=== PATIENT | male | born 1965 | race Caucasian/White ===

== ENCOUNTER 2017-03-10 18:32 | Emergency (ER) | payer BC ==
[2017-03-10 18:52] VITALS: BP 125/87
--- NOTE | 2017-03-10 19:10 | EDM.PDOC ---
ED HPI GENERAL MEDICAL PROBLEM - General Chief Complaint: Respiratory Problem Stated Complaint: HARD TIME BREATHING Time Seen by Provider: 03/10/17 18:55 Source of Information: Reports: Patient History Limitations: Reports: No Limitations - History of Present Illness INITIAL COMMENTS - FREE TEXT/NARRATIVE: HISTORY AND PHYSICAL: History of present illness: [Patient comes to the emergency room complaining of cough for the past several months. In the past couple of weeks he started coughing up green, yellow and brown-colored sputum. His cough has become more troublesome. He has occasional wheezing. No fever or chills. He has some throat irritation which he attributes to coughing. Denies chest pain, shortness of breath, and difficulty breathing. Does not have any abdominal pain, nausea or vomiting. No change in bowel or bladder. He hasn't tried any medications for his symptoms. Does not use home oxygen. 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 Has not seen PCP in 7+ years. He continues to smoke 2 packs a day for approximately 35-40 years. ] Review of systems: As per history of present illness and below otherwise all systems reviewed and negative. Past medical history: As per history of present illness and as reviewed below otherwise noncontributory. Surgical history: As per history of present illness and as reviewed below otherwise noncontributory. Social history: No reported history of drug or alcohol abuse. Family history: As per history of present illness and as reviewed below otherwise noncontributory. Physical exam: HEENT: Atraumatic, normocephalic. Cerumen present in ear canals bilaterally. Oral mucous membranes are pink and moist. Throat is mildly erythematous. neck supple, no lymphadenopathy. Lungs: Mild wheezing heard bilaterally. Lungs are otherwise Clear to auscultation. Heart: S1S2, regular rate and rhythm. Abdomen: Soft, nondistended, nontender. Obese. Pelvis: Stable nontender. Genitourinary: Deferred. Rectal: Deferred. Extremities: Atraumatic. Neurovascular unremarkable. Neuro: Awake, alert, oriented. Motor and sensory unremarkable throughout. Exam nonfocal. Diagnostics: [Chest x-ray] Therapeutics: [DuoNeb treatment] Impression: [COPD exacerbation] Plan: [Pt is able to breathe more deeply following DuoNeb treatment. Rx given for Azithromycin 250mg (#6) si po today then one daily total taken zero refills. Quit smoking. Followup with PCP to recheck and discuss the need for regular neb tx. Anticipate that patient's symptoms will improve w/ antibiotic. ] Definitive disposition and diagnosis as appropriate pending reevaluation and review of above. Throat, esophagus and lungs Pain Score (Numeric/FACES): 4 - Related Data Allergies Allergy/AdvReac Type Severity Reaction Status Date / Time hydrocodone [From [place]] Allergy "no Verified 03/10/17 18:43 functional" Home Meds: Home Meds . [No Known Home Meds] 07/11/16 [History] Past Medical History HEENT History: Reports: None Cardiovascular History: Reports: None Respiratory History: Reports: None Gastrointestinal History: Reports: Jaundice Genitourinary History: Reports: None Neurological History: Reports: None Psychiatric History: Reports: None Endocrine/Metabolic History: Reports: None - Infectious Disease History Infectious Disease History: Reports: Chicken Pox, Hepatitis A, Hepatitis B - Past Surgical History HEENT Surgical History: Reports: None Cardiovascular Surgical History: Reports: None GI Surgical History: Reports: None Social & Family History - Family History Family Medical History: Noncontributory HEENT: Reports: None Cardiac: Reports: None - Tobacco Use Smoking Status *Q: Current Every Day Smoker Years of Tobacco use: 40 Packs/Tins Daily: 2 - Caffeine Use Caffeine Use: Reports: Coffee Caffeine Use Comment: all day - Recreational Drug Use Recreational Drug Use: No ED ROS GENERAL - Review of Systems Review Of Systems: ROS reveals no pertinent complaints other than HPI. ED EXAM, GENERAL - Physical Exam Exam: See Below Course - Vital Signs Last Recorded V/S: Last Vital Signs Temp 97.7 F 03/10/17 18:45 Pulse 73 03/10/17 18:45 Resp 16 03/10/17 18:45 BP 125/87 03/10/17 18:45 Pulse Ox 94 L 03/10/17 18:45 - Orders/Labs/Meds Orders: Active Orders 24 hr Category Date Time Status RT Aerosol Therapy [RC] ASDIRECTED Care 03/10/17 20:52 Active Meds: Medications Discontinued Medications Generic Name Dose Route Start Last Admin Trade Name Freq PRN Reason Stop Dose Admin Albuterol/Ipratropium 3 ml 03/10/17 20:52 03/10/17 21:07 Duoneb 3.0-0.5 Mg/3 Ml NEB 03/10/17 20:53 3 ml ONETIME ONE Administration Departure - Departure Time of Disposition: 21:45 Disposition: Home, Self-Care 01 Condition: good Clinical Impression: COPD exacerbation - Discharge Information Instructions: Chronic Obstructive Pulmonary Disease Exacerbation, [id number] Referrals: PCP,None [Primary Care Provider] - Forms: ED Department Discharge Additional Instructions: The following information is given to patients seen in the emergency department who are being discharged to home. This information is to outline your options for follow-up care. We provide all patients seen in our emergency department with a follow-up referral. The need for follow-up, as well as the timing and circumstances, are variable depending upon the specifics of your emergency department visit. If you don't have a primary care physician on staff, we will provide you with a referral. We always advise you to contact your personal physician following an emergency department visit to inform them of the circumstance of the visit and for follow-up with them and/or the need for any referrals to a consulting specialist. The emergency department will also refer you to a specialist when appropriate. This referral assures that you have the opportunity for follow-up care with a specialist. All of these measure are taken in an effort to provide you with optimal care, which includes your follow-up. Under all circumstances we always encourage you to contact your private physician who remains a resource for coordinating your care. When calling for follow-up care, please make the office aware that this follow-up is from your recent emergency room visit. If for any reason you are refused follow-up, please contact the [facility] emergency department at and asked to speak to the emergency department charge nurse. [facility] [address] [place] [id number] Establish care at the clinic listed above and followup there in 48-72 hours. Take antibiotic as prescribed. Return to ER as needed as discussed - My Orders Last 24 Hours: My Active Orders 03/10/17 20:52 RT Aerosol Therapy [RC] ASDIRECTED - Assessment/Plan Last 24 Hours: My Active Orders 03/10/17 20:52 RT Aerosol Therapy [RC] ASDIRECTED
[2017-03-10] MEDS ORDERED: Albuterol/Ipratropium 3.0-0.5 MG/3 ML Neb Soln NEB ONE (20:52)
--- NOTE | 2017-03-11 10:27 | CR ---
EXAM DATE: 03/10/17 PATIENT'S AGE: 51 Patient: BIANCA IRELAND Facility: [place], [place] Site . Site : 1965 Study: XRay Chest [id number]/17/2017 8:27:28 PM Ordering Physician: Doctor Mendoza Final Report: INDICATION: cough, dyspnea COMPARISON: Chest x-ray dated 11 July 2016. FINDINGS: PA and lateral chest x-rays show a normal cardiac silhouette. The lungs show no focal pulmonary opacities. Sharp pleural margins. No pneumothorax. IMPRESSION: No evidence of acute pulmonary abnormalities. Dictated by Mo Christine MD @ 03/10/2017 8:50:48 PM Dictated by: Mo Christine MD @ 03/10/2017 20:50:54 (Electronic Signature) Report Signed by Proxy. [facility]
== END 2017-03-10 21:43 | disposition home or self-care (01) ==
LOC: MW.ED 18:32
DX: J44.1 Chronic obstructive pulmonary disease with (acute) exacerbation (principal); F17.210 Nicotine dependence, cigarettes, uncomplicated; Z88.5 Allergy status to narcotic agent
CPT/HCPCS: 71020; 71020-26; 94640; 99283-25; 99284

== ENCOUNTER 2017-12-03 05:10 | Emergency (ER) | payer BC ==
[2017-12-03] MEDS ORDERED: Sodium Chloride 0.9% 10 ML Syringe FLUSH PRN (05:14)
[2017-12-03] MEDS ORDERED: Sodium Chloride 0.9% 2.5 ML Syringe FLUSH PRN (05:14)
--- NOTE | 2017-12-03 05:23 | EDM.PDOC ---
ED HPI GENERAL MEDICAL PROBLEM - General Stated Complaint: STROKE Time Seen by Provider: 12/03/17 05:14 - History of Present Illness INITIAL COMMENTS - FREE TEXT/NARRATIVE: HISTORY AND PHYSICAL: History of present illness: The patient is a 51-year-old male who presents via EMS after he was at work and was noted to be normal 30-40 minutes before he was noted to have difficulty talking and then slumped to the ground due to weakness on his right side. EMS took about 15 minutes to get here and the time of onset of these symptoms is approximately 4:20 AM or 1 hour prior to this dictation. Patient was transported here quickly and on arrival patient is able to answer simple questions with yes and no but has garbled speech and cannot enunciate. He says he has has a headache on the top of his head but no neck pain no back pain no chest pain or shortness of breath no nausea or abdominal pain. He doesn't smoke or do drugs or drink. He denies any pre-existing medical problems but is difficult to get history due to his expressive aphasia and is in route. Patient is able to move the left upper and left lower extremity spontaneously and he has slight movement of his right foot and with assistance he can hold up his right arm but if left to the ground. He seems frustrated by my questions. Further history I will obtain from the when she arrives. He tells me he doesn't have a history of high blood pressure diabetes or heart problems and is not on blood thinners. Paramedics tell me that bystanders at the scene said that he did not have any trauma but slumped to the floor did not fall. According to the who is now here at O525 AM he has no pre-existing medical problems and he is a heavy smoker and always has a dry cough but he has issues with breathing when he is laying on his back which is what he has been doing well in the ER. She says that she got a text from him just before 4 AM which was coherent . She says that he does not take any medications except an occasional ibuprofen. Review of systems: As per history of present illness and below otherwise all systems reviewed and negative. Past medical history: As per history of present illness and as reviewed below otherwise noncontributory. Surgical history: As per history of present illness and as reviewed below otherwise noncontributory. Social history: No reported history of drug or alcohol abuse. Family history: As per history of present illness and as reviewed below otherwise noncontributory. Physical exam: General: Well-developed overweight male who is nontoxic and has garbling to his speech but can answer yes or no. He seems to understand my questions and is somewhat frustrated with his answers. He has had dry coughing in the ED but he is maintaining his airway and vital signs of the note by me HEENT: Atraumatic, normocephalic, pupils reactive, negative for conjunctival pallor or scleral icterus, mucous membranes moist, throat clear, neck supple, nontender, trachea midline. Lungs: Clear to auscultation, breath sounds equal bilaterally, chest nontender. Heart: S1S2, regular, negative for clicks, rubs, or JVD. Abdomen: Soft, nondistended, nontender. Negative for masses or hepatosplenomegaly. NABS. Pelvis: Stable nontender. Genitourinary: Deferred. Rectal: Deferred. Extremities: Atraumatic, palpable bony deformities or defects are appreciated negative for cords or calf pain. Neurovascular unremarkable. Neuro: Awake, alert, and able to answer simple questions with yes or no. Patient 's speech is slightly garbled and he cannot say more than 2 or 3 word sentences without me being unable to understand him. 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 His right foot has dorsi and plantar flexion but it is week 3/5. The entire left side of his body upper and lower extremities have intact motor and sensory 5/5. Patient does not have an obvious facial droop and is able to raise his eyebrows and puff out his cheeks. Skin: There is no diaphoresis turgor is normal and there is no evidence of any rashes or lesions. Diagnostics: NIH stroke scale EKG CBC CMP INR troponin TSH CT scan of the head chest x-ray Therapeutics: IV O2 monitor Initial NIHSS was 15 per nursing initial blood pressure on arrival to the ED was 198/64; currently without any treatment at 5:35 AM it is 149/86 0535: Patient now is able to squeeze my hand a little bit on the right side but he still has severe expressive aphasia and profound weakness on the right upper and right lower extremity. I am awaiting CT scan results and will contact [facility] in [place] for transfer and will plan to give TPA if CT scan of the head is negative and counts are good. 0546: Patient's platelet count is 100,000 which is the minimum that he needs to have to receive TPA and the is aware of that. I am currently waiting for CT scan report and if negative I will proceed to push TPA. 0542: At this time case was discussed with Dr. Abreu at [facility] who agrees that the patient meets criteria for TPA and accepts the patient for transfer. We have notified a flight team and they are in route. The patient stroke scale has improved to a 5 and so I read discussed this case with Dr. Ryan the neurologist at [facility] at 5:56 AM. He still feels strongly the patient should receive the TPA which I will proceed to give. and patient are aware of these conversations. Due to the persistence of his speech problems and his profound presentation Dr. Ryan feels that this is a significant event that requires the TPA I did discuss with the patient and the indications and contraindications for the altapase and he initially expressed concern because he has had bad nosebleeds in the past but he currently is not having any bleeding. Both he and the decided that they would proceed with the TPA which I have given via push and the drip is now hanging 0603: Flight team team is currently at bedside. I will continue to monitor this patient until his departure. At this current dictation troponin TSH and chest x- ray results are pending but all imaging has been forward to [facility] and [place] Critical care time including procedures:45min Impression: Acute onset of expressive aphasia and right sided hemiparesis, acute ischemic CVA Definitive disposition and diagnosis as appropriate pending reevaluation and review of above. - Related Data Allergies Allergy/AdvReac Type Severity Reaction Status Date / Time hydrocodone [From [place]] Allergy "no Verified 03/10/17 18:43 functional" Home Meds: Home Meds . [No Known Home Meds] 07/11/16 [History] Past Medical History HEENT History: Reports: None Cardiovascular History: Reports: None Respiratory History: Reports: None Gastrointestinal History: Reports: Jaundice Genitourinary History: Reports: None Neurological History: Reports: None Psychiatric History: Reports: None Endocrine/Metabolic History: Reports: None - Infectious Disease History Infectious Disease History: Reports: Chicken Pox, Hepatitis A, Hepatitis B - Past Surgical History HEENT Surgical History: Reports: None Cardiovascular Surgical History: Reports: None GI Surgical History: Reports: None Social & Family History - Family History Family Medical History: Noncontributory HEENT: Reports: None Cardiac: Reports: None - Tobacco Use Smoking Status *Q: Current Every Day Smoker Years of Tobacco use: 40 Packs/Tins Daily: 2 - Caffeine Use Caffeine Use: Reports: Coffee Caffeine Use Comment: all day - Recreational Drug Use Recreational Drug Use: No ED ROS GENERAL - Review of Systems Review Of Systems: ROS reveals no pertinent complaints other than HPI. ED EXAM, GENERAL - Physical Exam Exam: See Below (see dictation) Course - Orders/Labs/Meds Orders: Active Orders 24 hr Category Date Time Status Cardiac Monitoring [RC] . DIRECTED Care 12/03/17 05:15 Active EKG Documentation Completion [RC] STAT Care 12/03/17 05:15 Active Oxygen Therapy, ED [RC] ASDIRECTED Care 12/03/17 05:15 Active Pulse Oximetry [RC] ASDIRECTED Care 12/03/17 05:15 Active Chest 1V Frontal [CR] Stat Exams 12/03/17 05:15 Taken Head wo Cont [CT] Stat Exams 12/03/17 05:15 Taken COMPREHENSIVE METABOLIC PN,CMP [CHEM] Stat Lab 12/03/17 05:20 Results TROPONIN I [CHEM] Stat Lab 12/03/17 05:20 Results TSH [CHEM] Stat Lab 12/03/17 05:20 Results UA W/MICROSCOPIC [URIN] Stat Lab 12/03/17 05:15 Uncollected Sodium Chloride 0.9% [Saline Flush] Med 12/03/17 05:14 Active 10 ml FLUSH ASDIRECTED PRN Sodium Chloride 0.9% [Saline Flush] Med 12/03/17 05:14 Active 2.5 ml FLUSH ASDIRECTED PRN Saline Lock Insert [OM.PC] Stat Oth 12/03/17 05:15 Ordered Medication Orders Sodium Chloride (Saline Flush) 10 ml FLUSH ASDIRECTED PRN PRN Reason: Keep Vein Open Sodium Chloride (Saline Flush) 2.5 ml FLUSH ASDIRECTED PRN PRN Reason: Keep Vein Open Labs: Laboratory Tests 12/03/17 12/03/17 12/03/17 Range/Units 05:20 05:20 05:20 WBC 7.51 (4.0-11.0) K/uL RBC 5.18 (4.50-5.90) M/uL Hgb 16.0 (13.0-17.0) g/dL Hct 46.0 (38.0-50.0) % MCV 88.8 (80.0-98.0) fL MCH 30.9 (27.0-32.0) pg MCHC 34.8 (31.0-37.0) g/dL RDW Std Deviation 41.7 (28.0-62.0) fl RDW Coeff of Rodriguez 13 (11.0-15.0) % Plt Count 100 L (150-400) K/uL MPV 13.10 H (7.40-12.00) fL Neut % (Auto) 57.5 (48.0-80.0) % Lymph % (Auto) 27.3 (16.0-40.0) % [place] % (Auto) 14.2 (0.0-15.0) % Eos % (Auto) 0.7 (0.0-7.0) % Baso % (Auto) 0.3 (0.0-1.5) % Neut # (Auto) 4.3 (1.4-5.7) K/uL Lymph # (Auto) 2.1 (0.6-2.4) K/uL [place] # (Auto) 1.1 H (0.0-0.8) K/uL Eos # (Auto) 0.1 (0.0-0.7) K/uL Baso # (Auto) 0.0 (0.0-0.1) K/uL Nucleated RBC % 0.0 /100WBC Nucleated RBCs # 0 K/uL INR 0.98 Sodium 138 (136-146) mmol/L Potassium 4.0 (3.5-5.1) mmol/L Chloride 104 (98-110) mmol/L Carbon Dioxide 22 (21-31) mmol/L BUN 12 (6.0-23.0) mg/dL Creatinine 1.0 (0.6-1.5) mg/dL Est Cr Clr Drug Dosing TNP Estimated GFR (MDRD) > 60.0 ml/min Glucose 161 H (60-110) mg/dL Calcium 9.8 (8.8-10.8) mg/dL Total Bilirubin 0.5 (0.1-1.5) mg/dL AST 32 (5-40) IU/L ALT 55 H (8-54) IU/L Alkaline Phosphatase 99 (40-150) Total Protein 7.4 (6.0-8.0) g/dL Albumin 4.4 (3.5-5.0) g/dL Globulin 3.0 (2.0-3.5) g/dL Albumin/Globulin Ratio 1.5 (1.3-2.8) Meds: Medications Generic Name Dose Route Start Last Admin Trade Name Freq PRN Reason Stop Dose Admin Sodium Chloride 10 ml 12/03/17 05:14 Saline Flush FLUSH ASDIRECTED PRN Keep Vein Open Sodium Chloride 2.5 ml 12/03/17 05:14 Saline Flush FLUSH ASDIRECTED PRN Keep Vein Open Discontinued Medications Generic Name Dose Route Start Last Admin Trade Name Freq PRN Reason Stop Dose Admin Alteplase, Recombinant Confirm 12/03/17 05:44 Activase Administered 12/03/17 05:45 Dose 100 mg .ROUTE .STK-MED ONE Departure - Departure Time of Disposition: 06:06 Disposition: DC/Tfer to Acute Hospital 02 Condition: Good Clinical Impression: Cerebrovascular accident (CVA) Qualifiers: CVA mechanism: unspecified Qualified Code(s): I63.9 - Cerebral infarction, unspecified - Discharge Information Referrals: PCP,None [Primary Care Provider] - - My Orders Last 24 Hours: My Active Orders 12/03/17 05:14 Sodium Chloride 0.9% [Saline Flush] 10 ml FLUSH ASDIRECTED PRN Sodium Chloride 0.9% [Saline Flush] 2.5 ml FLUSH ASDIRECTED PRN 12/03/17 05:15 Cardiac Monitoring [RC] . DIRECTED EKG Documentation Completion [RC] STAT Oxygen Therapy, ED [RC] ASDIRECTED Pulse Oximetry [RC] ASDIRECTED Chest 1V Frontal [CR] Stat Head wo Cont [CT] Stat UA W/MICROSCOPIC [URIN] Stat Saline Lock Insert [OM.PC] Stat 12/03/17 05:20 COMPREHENSIVE METABOLIC PN,CMP [CHEM] Stat TROPONIN I [CHEM] Stat TSH [CHEM] Stat - Assessment/Plan Last 24 Hours: My Active Orders 12/03/17 05:14 Sodium Chloride 0.9% [Saline Flush] 10 ml FLUSH ASDIRECTED PRN Sodium Chloride 0.9% [Saline Flush] 2.5 ml FLUSH ASDIRECTED PRN 12/03/17 05:15 Cardiac Monitoring [RC] . DIRECTED EKG Documentation Completion [RC] STAT Oxygen Therapy, ED [RC] ASDIRECTED Pulse Oximetry [RC] ASDIRECTED Chest 1V Frontal [CR] Stat Head wo Cont [CT] Stat UA W/MICROSCOPIC [URIN] Stat Saline Lock Insert [OM.PC] Stat 12/03/17 05:20 COMPREHENSIVE METABOLIC PN,CMP [CHEM] Stat TROPONIN I [CHEM] Stat TSH [CHEM] Stat
[2017-12-03 05:45] LABS: CHLORIDE,CL 104 mmol/L (98-110); SODIUM,NA 138 mmol/L (136-146)
[2017-12-03] MEDS ORDERED: Alteplase 81 MG in Premix Bag 1 BAG IV SCH (06:00)
--- NOTE | 2017-12-03 15:46 | CT ---
EXAM DATE: 12/03/17 PATIENT'S AGE: 51 Patient: BIANCA IRELAND Facility: [place], [place] Site . Site : 1965 Study: CT Head STROKE PROTOCOL [id number]/9/2018 5:36:03 AM Ordering Physician: Doctor Mendoza Final Report: INDICATION: Stroke protocol TECHNIQUE: CT head without contrast. COMPARISON: None available FINDINGS: The ventricles and sulci demonstrate normal configuration and size for the patient`s age. There is no mass effect or midline shift. There is no loss of flores-white differentiation. There is no evidence of a gross acute intracranial hemorrhage. No acute calvarial fracture is seen. The visualized paranasal sinuses and mastoid air cells are clear. The visualized orbits are within normal limits. The adenoids are enlarged for the patient`s age. IMPRESSION: No evidence of a gross acute intracranial hemorrhage, mass effect or loss of flores-white differentiation. Dictated by Manuel Downey MD @ 12/03/2017 5:50:33 AM Dictated by: Manuel Downey MD @ 12/03/2017 05:50:41 ----- ADDENDUM ----- The findings were communicated to the patient`s nurse, Mel, on 12/03/2017 at 5:50 a.m. Dictated by Manuel Downey MD @ Dec 03 2017 5:58AM (Electronic Signature) Report Signed by Proxy. [facility]
--- NOTE | 2017-12-03 15:47 | CR ---
EXAM DATE: 12/03/17 PATIENT'S AGE: 51 Patient: BIANCA IRELAND Facility: [place], [place] Site . Site : 1965 Study: XRay Chest [id number] stroke code pt-12/03/2017 5:54:18 AM Ordering Physician: Doctor Mendoza Final Report: INDICATION: Stroke Symptoms, Cough TECHNIQUE: Chest 1 view. COMPARISON: 03/10/2017 FINDINGS: Cardiovascular and mediastinum: Heart size and vasculature are normal in caliber and appearance. Mediastinum is within normal limits. Lungs and pleural space: Lungs are clear. No sign of infiltrate or mass. No sign of pleural effusion. No pneumothorax. Bones and soft tissues: No significant findings. IMPRESSION: Unremarkable chest. Dictated by: Gurwinder Haddad MD @ 12/03/2017 06:07:57 (Electronic Signature) Report Signed by Proxy. [facility]
[2017-12-03 19:27] VITALS: BP 138/95
== END 2017-12-03 06:20 ==
LOC: MW.ED 05:10
DX: I63.9 Cerebral infarction, unspecified (principal); R47.01 Aphasia; G81.90 Hemiplegia, unspecified affecting unspecified side; F17.210 Nicotine dependence, cigarettes, uncomplicated; Z88.5 Allergy status to narcotic agent
CPT/HCPCS: 36415; 70450; 71045; 80053; 84443; 84484; 85025; 85610; 93005; 99291; J2997; 99285

== ENCOUNTER 2018-12-06 23:39 | Emergency (ER) | payer SELFPAY ==
[2018-12-07] MEDS ORDERED: Sodium Chloride 0.9% 2.5 ML Syringe FLUSH PRN (00:47)
[2018-12-07] MEDS ORDERED: Sodium Chloride 0.9% 10 ML Syringe FLUSH PRN (00:47)
--- NOTE | 2018-12-07 00:50 | EDM.PDOC ---
ED HPI GENERAL MEDICAL PROBLEM - General Chief Complaint: General Stated Complaint: PT HAS HIGH BLOOD PRESSURE Time Seen by Provider: 12/07/18 00:36 - History of Present Illness INITIAL COMMENTS - FREE TEXT/NARRATIVE: HISTORY AND PHYSICAL: History of present illness: The patient is a 52-year-old female who has a history of coming in to our ER last year on every ninth and being taken care of by this provider for garbled speech and stroke symptoms. The patient was given TPA and flown to [facility] where he had a full workup including MRI and neurology consultation and it was determined that he had had a TIA and that there was no abnormalities. He suffers only followed up in our clinic but dropped off and has not really been seen by provider in approximately 8-9 months. The patient says that over the last 2 weeks he has been having symptoms of blurred vision dizziness and not feeling right although he has not had a discrete headache speech changes vomiting chest pain or shortness of breath. He is not falling but he is feeling lightheaded. He has been periodically checking his blood pressure at [facility] and says it is been running 150s over 90s which is high for him as he usually is 110s over 70s. He is concerned about his blood pressure and he says that he knows he needs to get an eye exam but he has not done that yet. His eyes are blurry and that has been on and off for the last 2 weeks. He has no focal weakness neck or back pain and no neurosensory changes and is at bedside concurring all of these symptoms. Review of systems: As per history of present illness and below otherwise all systems reviewed and negative. Past medical history: As per history of present illness and as reviewed below otherwise noncontributory. Surgical history: As per history of present illness and as reviewed below otherwise noncontributory. Social history: No reported history of drug or alcohol abuse. Family history: As per history of present illness and as reviewed below otherwise noncontributory. Physical exam: General: Well-developed well-nourished overweight man who is speaking clearly and easily in the ED and moves easily without any distress. He and related into the ED. Vital signs are noted by me HEENT: Atraumatic, normocephalic, pupils reactive, negative for conjunctival pallor or scleral icterus, mucous membranes moist, throat clear, neck supple, nontender, trachea midline. Lungs: Clear to auscultation, breath sounds equal bilaterally, chest nontender. Heart: S1S2, regular, negative for clicks, rubs, or JVD. Abdomen: Soft, nondistended, nontender. Negative for masses or hepatosplenomegaly. Negative for costovertebral tenderness. Pelvis: Stable nontender. Genitourinary: Deferred. Rectal: Deferred. Extremities: Atraumatic, negative for cords or calf pain. Neurovascular unremarkable. Full range of motion without defects or deficits Neuro: Awake, alert, oriented. Cranial nerves II through XII unremarkable. Cerebellum unremarkable. Motor and sensory unremarkable throughout. Exam nonfocal. Diagnostics: EKG CBC CMP troponin TSH UA chest x-ray CT scan of the head Therapeutics: IV O2 monitor aspirin I discussed all testing results with the patient and at bedside and now that his blood pressure has come down spontaneously to what he says is more of his normal blood pressure he is feeling much improved. I have offered him admission to the hospital but due to our lack of beds and full capacity status he would need to be transferred to [facility]. He declines the transfer and admission and would prefer to follow-up in the clinic. He is aware of my concerns and accepts them. He says that is likely due to his blood pressure and he would like to have that evaluated and started on medication. Impression: Episodic hypertension with symptomatology stable declining transfer/admission Definitive disposition and diagnosis as appropriate pending reevaluation and review of above. left arm pressure Pain Score (Numeric/FACES): 3 - Related Data Allergies Allergy/AdvReac Type Severity Reaction Status Date / Time hydrocodone [From [place]] Allergy "no Verified 12/07/18 00:13 functional" Home Meds: Home Meds . [No Known Home Meds] 07/11/16 [History] Past Medical History - Past Health History Medical/Surgical History: Denies Medical/Surgical History HEENT History: Reports: None Cardiovascular History: Reports: None Respiratory History: Reports: None Gastrointestinal History: Reports: Jaundice Genitourinary History: Reports: None Musculoskeletal History: Reports: None Neurological History: Reports: TIA Other Neuro History: last 2017 Psychiatric History: Reports: None Endocrine/Metabolic History: Reports: None Hematologic History: Reports: None Immunologic History: Reports: None Oncologic (Cancer) History: Reports: None Dermatologic History: Reports: None - Infectious Disease History Infectious Disease History: Reports: None - Past Surgical History HEENT Surgical History: Reports: None Cardiovascular Surgical History: Reports: None GI Surgical History: Reports: None Social & Family History - Family History Family Medical History: Noncontributory HEENT: Reports: None Cardiac: Reports: None - Tobacco Use Smoking Status *Q: Current Every Day Smoker Years of Tobacco use: 47 Packs/Tins Daily: 1.5 - Caffeine Use Caffeine Use: Reports: Coffee Caffeine Use Comment: all day - Recreational Drug Use Recreational Drug Use: No ED ROS GENERAL - Review of Systems Review Of Systems: ROS reveals no pertinent complaints other than HPI. ED EXAM, GENERAL - Physical Exam Exam: See Below (See dictation) Course - Vital Signs Last Recorded V/S: Last Vital Signs Temp 36.9 C 12/07/18 02:10 Pulse 76 12/07/18 02:10 Resp 20 12/07/18 02:10 BP 118/74 12/07/18 02:10 Pulse Ox 94 L 12/07/18 02:10 - Orders/Labs/Meds Orders: Active Orders 24 hr Category Date Time Status Cardiac Monitoring [RC] . DIRECTED Care 12/07/18 00:46 Active EKG Documentation Completion [RC] STAT Care 12/07/18 00:46 Active Oxygen Therapy, ED [RC] ASDIRECTED Care 12/07/18 00:46 Active Pulse Oximetry [RC] ASDIRECTED Care 12/07/18 00:46 Active UA W/SARAH RFLX IF INDICATED [URIN] Stat Lab 12/07/18 02:11 Received Sodium Chloride 0.9% [Saline Flush] Med 12/07/18 00:47 Active 10 ml FLUSH ASDIRECTED PRN Sodium Chloride 0.9% [Saline Flush] Med 12/07/18 00:47 Active 2.5 ml FLUSH ASDIRECTED PRN Saline Lock Insert [OM.PC] Stat Oth 12/07/18 00:46 Ordered Medication Orders Sodium Chloride (Saline Flush) 10 ml FLUSH ASDIRECTED PRN PRN Reason: Keep Vein Open Sodium Chloride (Saline Flush) 2.5 ml FLUSH ASDIRECTED PRN PRN Reason: Keep Vein Open Labs: Laboratory Tests 12/07/18 12/07/18 Range/Units 01:10 01:10 WBC 8.59 (4.0-11.0) K/uL RBC 5.21 (4.50-5.90) M/uL Hgb 16.1 (13.0-17.0) g/dL Hct 46.5 (38.0-50.0) % MCV 89.3 (80.0-98.0) fL MCH 30.9 (27.0-32.0) pg MCHC 34.6 (31.0-37.0) g/dL RDW Std Deviation 43.9 (28.0-62.0) fl RDW Coeff of Rodriguez 13 (11.0-15.0) % Plt Count 109 L (150-400) K/uL MPV 12.90 H (7.40-12.00) fL Neut % (Auto) 54.1 (48.0-80.0) % Lymph % (Auto) 37.7 (16.0-40.0) % [place] % (Auto) 6.8 (0.0-15.0) % Eos % (Auto) 1.2 (0.0-7.0) % Baso % (Auto) 0.2 (0.0-1.5) % Neut # (Auto) 4.7 (1.4-5.7) K/uL Lymph # (Auto) 3.2 H (0.6-2.4) K/uL [place] # (Auto) 0.6 (0.0-0.8) K/uL Eos # (Auto) 0.1 (0.0-0.7) K/uL Baso # (Auto) 0.0 (0.0-0.1) K/uL Nucleated RBC % 0.0 /100WBC Nucleated RBCs # 0 K/uL Sodium 140 (136-148) mmol/L Potassium 4.2 (3.5-5.1) mmol/L Chloride 105 (98-107) mmol/L Carbon Dioxide 26.8 (21.0-32.0) mmol/L BUN 17 (7.0-18.0) mg/dL Creatinine 0.9 (0.8-1.3) mg/dL Est Cr Clr Drug Dosing 87.73 mL/min Estimated GFR (MDRD) > 60.0 ml/min Glucose 138 H (74-106) mg/dL Calcium 9.5 (8.5-10.1) mg/dL Total Bilirubin 0.2 (0.2-1.0) mg/dL AST 28 (15-37) IU/L ALT 46 (14-63) IU/L Alkaline Phosphatase 87 (46-116) U/L Troponin I < 0.050 (0.000-0.056) ng/mL Total Protein 7.4 (6.4-8.2) g/dL Albumin 3.9 (3.4-5.0) g/dL Globulin 3.5 (2.6-4.0) g/dL Albumin/Globulin Ratio 1.1 (0.9-1.6) TSH 3rd Generation 0.54 (0.36-3.74) uIU/mL Meds: Medications Generic Name Dose Route Start Last Admin Trade Name Freq PRN Reason Stop Dose Admin Sodium Chloride 10 ml 12/07/18 00:47 Saline Flush FLUSH ASDIRECTED PRN Keep Vein Open Sodium Chloride 2.5 ml 12/07/18 00:47 Saline Flush FLUSH ASDIRECTED PRN Keep Vein Open Discontinued Medications Generic Name Dose Route Start Last Admin Trade Name Freq PRN Reason Stop Dose Admin Aspirin 325 mg 12/07/18 02:10 Aspirin PO 12/07/18 02:11 ONETIME ONE Departure - Departure Time of Disposition: 02:33 Disposition: Home, Self-Care 01 Condition: Good Clinical Impression: Dizziness Hypertension Qualifiers: Hypertension type: unspecified Qualified Code(s): I10 - Essential (primary) hypertension - Discharge Information Referrals: PCP,None [Primary Care Provider] - Forms: ED Department Discharge Additional Instructions: The following information is given to patients seen in the emergency department who are being discharged to home. This information is to outline your options for follow-up care. We provide all patients seen in our emergency department with a follow-up referral. The need for follow-up, as well as the timing and circumstances, are variable depending upon the specifics of your emergency department visit. If you don't have a primary care physician on staff, we will provide you with a referral. We always advise you to contact your personal physician following an emergency department visit to inform them of the circumstance of the visit and for follow-up with them and/or the need for any referrals to a consulting specialist. The emergency department will also refer you to a specialist when appropriate. This referral assures that you have the opportunity for followup care with a specialist. All of these measure are taken in an effort to provide you with optimal care, which includes your followup. Under all circumstances we always encourage you to contact your private physician who remains a resource for coordinating your care. When calling for followup care, please make the office aware that this follow-up is from your recent emergency room visit. If for any reason you are refused follow-up, please contact the [facility] emergency department at and ask to speak to the emergency department charge nurse. [facility] Primary care- [place] [address] Please watch the sodium and salt in your diet and please call the clinic first thing in the morning and schedule a follow-up appointment to reevaluate your blood pressure and do further testing. Return to ER as needed and as discussed - My Orders Last 24 Hours: My Active Orders 12/07/18 00:46 Cardiac Monitoring [RC] . DIRECTED EKG Documentation Completion [RC] STAT Oxygen Therapy, ED [RC] ASDIRECTED Pulse Oximetry [RC] ASDIRECTED Saline Lock Insert [OM.PC] Stat 12/07/18 00:47 Sodium Chloride 0.9% [Saline Flush] 10 ml FLUSH ASDIRECTED PRN Sodium Chloride 0.9% [Saline Flush] 2.5 ml FLUSH ASDIRECTED PRN 12/07/18 02:11 UA W/SARAH RFLX IF INDICATED [URIN] Stat - Assessment/Plan Last 24 Hours: My Active Orders 12/07/18 00:46 Cardiac Monitoring [RC] . DIRECTED EKG Documentation Completion [RC] STAT Oxygen Therapy, ED [RC] ASDIRECTED Pulse Oximetry [RC] ASDIRECTED Saline Lock Insert [OM.PC] Stat 12/07/18 00:47 Sodium Chloride 0.9% [Saline Flush] 10 ml FLUSH ASDIRECTED PRN Sodium Chloride 0.9% [Saline Flush] 2.5 ml FLUSH ASDIRECTED PRN 12/07/18 02:11 UA W/SARAH RFLX IF INDICATED [URIN] Stat
--- NOTE | 2018-12-07 01:40 | CR ---
INDICATION: Chest pain, high blood pressure TECHNIQUE: Chest radiograph 1 view COMPARISON: None FINDINGS: Mediastinum: The mediastinum is normal in appearance. The heart silhouette is normal in size and morphology. Lung: Trace left basilar atelectasis noted. No sign of pleural effusion seen. No pneumothorax is identified. Musculoskeletal: Unremarkable for age. IMPRESSION: 1. Trace left basilar atelectasis noted. Dictated by Harrison Haider MD @ 12/07/2018 1:38:28 AM Dictated by: Harrison Haider MD @ 12/07/2018 01:38:46 (Electronically Signed)
--- NOTE | 2018-12-07 01:44 | CT ---
INDICATION: Headache, high blood pressure TECHNIQUE: CT Head without i.v. contrast. COMPARISON: None FINDINGS: CSF space: The ventricles are normal for age. Brain: No evidence of mass, acute infarction or hemorrhage is seen. No mass-effect or midline shift is seen. The brain parenchyma is otherwise normal in appearance with preservation of the flores-white matter junction. Calvarium: The visualized paranasal sinuses are well aerated. The mastoid air cells are clear. The visualized orbits are grossly unremarkable. The calvarium is unremarkable in appearance with no fractures identified. IMPRESSION: 1. No evidence of acute infarction, intracranial hemorrhage, or mass-effect seen. Please note that all CT scans at this facility use dose modulation, iterative reconstruction, and/or weight-based dosing when appropriate to reduce radiation dose to as low as reasonably achievable. Dictated by: Harrison Haider MD @ 12/07/2018 01:42:19 (Electronically Signed)
[2018-12-07 02:05] LABS: CHLORIDE,CL 105 mmol/L (98-107); SODIUM,NA 140 mmol/L (136-148)
[2018-12-07] MEDS ORDERED: Aspirin 325 MG Tab PO ONE (02:10)
[2018-12-07 03:27] VITALS: BP 135/82
== END 2018-12-07 03:15 | disposition home or self-care (01) ==
LOC: MW.ED 23:39
DX: I10 Essential (primary) hypertension (principal); F17.210 Nicotine dependence, cigarettes, uncomplicated; Z88.5 Allergy status to narcotic agent; Z86.73 Personal history of transient ischemic attack (TIA), and cerebral infarction without residual deficits
CPT/HCPCS: 36415; 70450; 70450-26; 71045; 71045-26; 80053; 81003; 84443; 84484; 85025; 93005; 99284; 99285-25

== ENCOUNTER 2019-06-09 15:52 | Emergency (ER) | payer OTHER ==
[2019-06-09 16:05] VITALS: BP 129/66
--- NOTE | 2019-06-09 16:31 | EDM.PDOC ---
ED HPI GENERAL MEDICAL PROBLEM - General Chief Complaint: Back Pain or Injury Stated Complaint: BACK PAIN Time Seen by Provider: 06/09/19 16:30 Source of Information: Reports: Patient History Limitations: Reports: No Limitations - History of Present Illness INITIAL COMMENTS - FREE TEXT/NARRATIVE: HISTORY AND PHYSICAL: History of present illness: Patient is a 53-year-old male presents to the ED with complaint of low back pain. 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 He states that his truck does not have good suspension when he goes over bumps jars his back. He states it's gotten worse recently and today he had to "hard hits" and now is having a shocking pain into his right leg and numbness into his left leg. He denies any saddle anesthesia, lower extremity weakness or foot drop, loss of bowel or bladder control, fevers or chills. He denies direct trauma to the back. Patient did walk into the ED but with some difficulty secondary to the pain. Past medical history significant for type 2 diabetes. Review of systems: As per history of present illness and below otherwise all systems reviewed and negative. Past medical history: As per history of present illness and as reviewed below otherwise noncontributory. Surgical history: As per history of present illness and as reviewed below otherwise noncontributory. Social history: No reported history of drug or alcohol abuse. Family history: As per history of present illness and as reviewed below otherwise noncontributory. Physical exam: General: Patient sitting comfortably in no acute distress and nontoxic appearing HEENT: Atraumatic, normocephalic, pupils reactive, negative for conjunctival pallor or scleral icterus, mucous membranes moist, throat clear, neck supple, nontender, trachea midline. No meningeal signs. Lungs: Clear to auscultation, breath sounds equal bilaterally, chest nontender. Heart: S1S2, regular, negative for clicks, rubs, or overt murmur. Abdomen: Soft, nondistended, nontender. Negative for masses or hepatosplenomegaly. Negative for costovertebral tenderness. No rigidity, rebound , guarding. Pelvis: Stable nontender. Genitourinary: Deferred. Rectal: Deferred. Extremities: Atraumatic, negative for cords or calf pain. Neurovascular unremarkable. Spine: lumbar spinal vertebral tenderness to palpation without step offs. Dorsiflexion and plantar flexion is 5/5 right, 4/5 left. Neuro: Awake, alert, oriented. Cranial nerves II through XII unremarkable. Cerebellum unremarkable. Motor and sensory unremarkable throughout. Exam nonfocal. Notes: Diagnostics: x-ray lumbar spine Therapeutics: Solumedrol 125mg IM Prescriptions: Medrol dosepack Impression: Lumbar back pain Plan: Take medrol dose pack as instructed. You may alternate tylenol and motrin as needed. Follow up with primary care provider Return to ED as needed as discussed Definitive disposition and diagnosis as appropriate pending reevaluation and review of above. lower back Pain Score (Numeric/FACES): 6 - Related Data Allergies Allergy/AdvReac Type Severity Reaction Status Date / Time hydrocodone [From [place]] Allergy Nausea and Verified 06/09/19 16:05 Vomiting Home Meds: Home Meds metFORMIN HCl [Metformin HCl] 1 tab PO BID 06/09/19 [History] methylPREDNISolone [Medrol] 4 mg PO ASDIRECTED #1 tab.ds.pk 06/09/19 [Rx] Past Medical History - Past Health History Medical/Surgical History: Denies Medical/Surgical History HEENT History: Reports: None Cardiovascular History: Reports: None Respiratory History: Reports: None Gastrointestinal History: Reports: Jaundice Genitourinary History: Reports: None Musculoskeletal History: Reports: Back Pain, Chronic Neurological History: Reports: TIA Other Neuro History: last 2017 Psychiatric History: Reports: None Endocrine/Metabolic History: Reports: None Hematologic History: Reports: None Immunologic History: Reports: None Oncologic (Cancer) History: Reports: None Dermatologic History: Reports: None - Infectious Disease History Infectious Disease History: Reports: Chicken Pox, Hepatitis B - Past Surgical History Head Surgeries/Procedures: Reports: None HEENT Surgical History: Reports: None Cardiovascular Surgical History: Reports: None Respiratory Surgical History: Reports: None GI Surgical History: Reports: None Male Surgical History: Reports: None Endocrine Surgical History: Reports: None Neurological Surgical History: Reports: None Musculoskeletal Surgical History: Reports: None Oncologic Surgical History: Reports: None Dermatological Surgical History: Reports: None Social & Family History - Family History Family Medical History: Noncontributory HEENT: Reports: None Cardiac: Reports: None - Tobacco Use Smoking Status *Q: Current Every Day Smoker Years of Tobacco use: 45 Packs/Tins Daily: 2 - Caffeine Use Caffeine Use: Reports: Coffee Caffeine Use Comment: all day - Recreational Drug Use Recreational Drug Use: No ED ROS GENERAL - Review of Systems Review Of Systems: ROS reveals no pertinent complaints other than HPI. ED EXAM,LOWER BACK PAIN/INJURY - Physical Exam Exam: See Below (see dictation) Course - Vital Signs Last Recorded V/S: Last Vital Signs Temp 97.5 F 06/09/19 16:03 Pulse 88 06/09/19 16:03 Resp 18 06/09/19 16:03 BP 129/66 06/09/19 16:03 Pulse Ox 94 L 06/09/19 16:03 - Orders/Labs/Meds Meds: Medications Discontinued Medications Generic Name Dose Route Start Last Admin Trade Name Elva PRN Reason Stop Dose Admin Methylprednisolone Sodium Succinate 125 mg 06/09/19 16:31 06/09/19 16:52 Solu-Medrol IVPUSH 06/09/19 16:32 Not Given ONETIME ONE Methylprednisolone Sodium Succinate 125 mg 06/09/19 16:52 06/09/19 16:52 Solu-Medrol IM 06/09/19 16:53 125 mg ONETIME ONE Administration Departure - Departure Time of Disposition: 17:49 Disposition: Home, Self-Care 01 Condition: Good Clinical Impression: Lumbar back pain - Discharge Information Prescriptions: methylPREDNISolone [Medrol] 4 mg PO ASDIRECTED #1 tab.ds.pk Referrals: Margarito Kraft MD [Primary Care Provider] - Forms: ED Department Discharge Additional Instructions: The following information is given to patients seen in the emergency department who are being discharged to home. This information is to outline your options for follow-up care. We provide all patients seen in our emergency department with a follow-up referral. The need for follow-up, as well as the timing and circumstances, are variable depending upon the specifics of your emergency department visit. If you don't have a primary care physician on staff, we will provide you with a referral. We always advise you to contact your personal physician following an emergency department visit to inform them of the circumstance of the visit and for follow-up with them and/or the need for any referrals to a consulting specialist. The emergency department will also refer you to a specialist when appropriate. This referral assures that you have the opportunity for follow-up care with a specialist. All of these measure are taken in an effort to provide you with optimal care, which includes your follow-up. Under all circumstances we always encourage you to contact your private physician who remains a resource for coordinating your care. When calling for follow-up care, please make the office aware that this follow-up is from your recent emergency room visit. If for any reason you are refused follow-up, please contact the [facility] Emergency Department at and asked to speak to the emergency department charge nurse. [facility] [address] [place] [address] [id number] [address] [address] Take medrol dose pack as instructed. You may alternate tylenol and motrin as needed. Follow up with primary care provider Return to ED as needed as discussed
[2019-06-09] MEDS: methylPREDNISolone Sodium Succinate 125 MG/2 ML SDV IVPUSH ONE ×2 (16:50→16:52)
[2019-06-09] MEDS ORDERED: methylPREDNISolone Sodium Succinate 125 MG/2 ML SDV IM ONE (16:52)
--- NOTE | 2019-06-09 17:48 | CR ---
HISTORY: Low-back pain. COMPARISON: None available. FINDINGS: The lumbar spine was examined with AP, lateral, and lateral spot views for a total of three views. There is no sign of fracture or subluxation. The vertebral bodies are normal in height and they are in anatomic alignment. The disc spaces are normal in height as well. There are mild age-appropriate hypertrophic changes in the inferior thoracic spine. The visualized bony pelvis and bowel gas pattern are normal in appearance. IMPRESSION: Normal lumbar spine. Dictated by Uirel Castro MD @ Jun 09 2019 5:45PM Signed by Dr. Uriel Castro @ Jun 09 2019 5:46PM
== END 2019-06-09 18:22 | disposition home or self-care (01) ==
LOC: MW.ED 15:52
DX: M54.5 Low back pain (principal); F17.210 Nicotine dependence, cigarettes, uncomplicated; Z88.5 Allergy status to narcotic agent; Z86.13 Personal history of malaria
CPT/HCPCS: 72100; 96372; 99283; J2930

== ENCOUNTER 2020-11-01 17:31 | Emergency (ER) | payer SELFPAY ==
--- NOTE | 2020-11-01 18:01 | EDM.PDOC ---
ED HPI GENERAL MEDICAL PROBLEM - General Chief Complaint: Flank Pain Stated Complaint: SICK Time Seen by Provider: 11/01/20 17:33 Source of Information: Reports: Patient History Limitations: Reports: No Limitations - History of Present Illness INITIAL COMMENTS - FREE TEXT/NARRATIVE: HISTORY AND PHYSICAL: History of present illness: Patient is a 54-year-old male who presents to the emergency room with complaints of left flank pain that wraps around to his left front abdomen. He states the area is tender to touch and feels like a "rope pulling inside the side of my stomach". Patient denies any fever, chills, headache, change in vision, syncope or near syncope. Denies any chest pain, back pain, shortness of breath or cough. Denies any abdominal pain, nausea, vomiting, diarrhea, constipation or dysuria. Has not noted any blood in urine or stool. Patient has been eating and drinking appropriately. Newly diagnosed with type 2 diabetes and does use insulin and oral diabetic medications on a routine basis. Review of systems: As per history of present illness and below otherwise all systems reviewed and negative. Past medical history: As per history of present illness and as reviewed below otherwise noncontributory. Surgical history: As per history of present illness and as reviewed below otherwise noncontributory. Social history: See social history for further information Family history: As per history of present illness and as reviewed below otherwise noncontributory. Physical exam: General: Well developed and well nourished 54 year old male. Alert and orientated x 3. Nontoxic in appearance and in no acute distress. Vital signs are stable and have been reviewed by me. Nursing notes were reviewed. HEENT: Atraumatic, normocephalic, pupils equal and reactive bilaterally, negative for conjunctival pallor or scleral icterus, mucous membranes moist, trachea midline. No drooling or trismus noted. No meningeal signs. No hot potato voice noted. Lungs: Clear to auscultation, breath sounds equal bilaterally, chest nontender. Normal work of breathing, no accessory muscles used. Heart: S1S2, regular rate and rhythm without overt murmur Abdomen: Soft, nondistended, nontender. Negative for masses or hepatosplenomegaly. Negative for costovertebral tenderness. Skin: Intact, warm, dry. No lesions or rashes noted. Hematologic: No petechiae or purpra. Mucosa appropriate color and normal nail bed color and refill. Extremities: Atraumatic, moves all extremities per self without difficulty or deficits, negative for cords or calf pain. Neurovascular unremarkable. Neuro: Awake, alert, oriented. Cranial nerves II through XII unremarkable. Cerebellum unremarkable. Motor and sensory unremarkable throughout. Exam nonfocal. Psychiatric: Mood and affect are appropriate. Normal thought process. Answering questions appropriately. Notes: Patient is very tender to touch of the left lateral abdomen, I did observe the skin and do not see any type of herpes zoster outbreak. He is agreeable to lab work and CT of the abdomen and pelvis if warranted. CT shows no acute findings in the abdomen or pelvis. I believe patient's pain could be the start of a shingles out-break. Patient does not want this treated as he doesn't have any rash, but we did discuss what to watch out for if a blister-like rash should develop.I have talked with the patient about today's findings, in addition to providing specific details for plan of care. Reassessment at the time of disposition demonstrates that the patient is in no acute distress. The patient is stable for discharge, counseling was provided and we discussed in great detail signs and symptoms that would prompt them to return to the Emergency Department. Medication, follow up and supportive care measures were reviewed and discussed. Voices understanding and is agreeable to plan of care. Denies any further questions or concerns at this time. Diagnostics: CBC, CMP, UA, lipase, CT abdomen and pelvis Therapeutics: Tylenol #3 Prescription: Tylenol #3 (#10) Impression: Left flank pain Plan: 1. Today your lab work and CT scan are within normal limits. As we discussed, I believe your pain could be the start of a shingles out-break. If you develop a blister-like rash, I would like you to be seen by your primary care provider so you can get the medications we discussed. 2. Continue taking your home medications as directed. You can alternate Tylenol and ibuprofen as needed for pain management. Tylenol #3 as needed for moderate to sever pain. This medication may cause drowsiness, so do not drive while taking it. 3. We encourage you to follow up with your primary care provider and/or recommended specialist in the next few days for re-evaluation and further care/management. If your symptoms should worsen, new symptoms develop or any of the signs and symptoms we discussed should arise please return to the emergency room or call 911 (if needed). Definitive disposition and diagnosis as appropriate pending reevaluation and review of above. L Flank Pain Score (Numeric/FACES): 7 - Related Data Allergies Allergy/AdvReac Type Severity Reaction Status Date / Time hydrocodone [From [place]] Allergy Nausea and Verified 11/01/20 18:00 Vomiting Home Meds: Home Meds metFORMIN HCl [Metformin HCl] 1 tab PO BID 06/09/19 [History] Acetaminophen/Codeine [Tylenol with Codeine No.3 300MG/30MG] 1 tab PO Q4H PRN #10 tab 11/01/20 [Rx] Insulin Glargine,Hum.Rec.Anlog [Basaglar Kwikpen U-100] 25 unit SQ BID 11/01/20 [History] atorvaSTATin [Lipitor] 80 mg PO BEDTIME 11/01/20 [History] Past Medical History - Past Health History Medical/Surgical History: Denies Medical/Surgical History HEENT History: Reports: None Cardiovascular History: Reports: None Respiratory History: Reports: None Gastrointestinal History: Reports: Jaundice Genitourinary History: Reports: None Musculoskeletal History: Reports: Back Pain, Chronic Neurological History: Reports: TIA Other Neuro History: last 2017 Psychiatric History: Reports: None Endocrine/Metabolic History: Reports: None Hematologic History: Reports: None Immunologic History: Reports: None Oncologic (Cancer) History: Reports: None Dermatologic History: Reports: None - Infectious Disease History Infectious Disease History: Reports: Chicken Pox, Hepatitis B - Past Surgical History Head Surgeries/Procedures: Reports: None HEENT Surgical History: Reports: None Cardiovascular Surgical History: Reports: None Respiratory Surgical History: Reports: None GI Surgical History: Reports: None Male Surgical History: Reports: None Endocrine Surgical History: Reports: None Neurological Surgical History: Reports: None Musculoskeletal Surgical History: Reports: None Oncologic Surgical History: Reports: None Dermatological Surgical History: Reports: None Social & Family History - Family History Family Medical History: No Pertinent Family History HEENT: Reports: None Cardiac: Reports: None - Caffeine Use Caffeine Use: Reports: Coffee Caffeine Use Comment: all day ED ROS GENERAL - Review of Systems Review Of Systems: Comprehensive ROS is negative, except as noted in HPI. ED EXAM, RENAL/ - Physical Exam Exam: See Below (See dictation) Course - Vital Signs Last Recorded V/S: Last Vital Signs Temp 96.7 F L 11/01/20 17:46 Pulse 77 11/01/20 19:11 Resp 16 11/01/20 19:11 BP 128/75 11/01/20 19:11 Pulse Ox 96 11/01/20 19:11 - Orders/Labs/Meds Labs: Laboratory Tests 11/01/20 11/01/20 11/01/20 Range/Units 18:00 18:00 20:00 WBC 10.28 (4.0-11.0) K/uL RBC 5.15 (4.50-5.90) M/uL Hgb 15.7 (13.0-17.0) g/dL Hct 46.7 (38.0-50.0) % MCV 90.7 (80.0-98.0) fL MCH 30.5 (27.0-32.0) pg MCHC 33.6 (31.0-37.0) g/dL RDW Std Deviation 43.4 (28.0-62.0) fl RDW Coeff of Rodriguez 13 (11.0-15.0) % Plt Count 106 L (150-400) K/uL MPV 11.90 (7.40-12.00) fL Neut % (Auto) 48.6 (48.0-80.0) % Lymph % (Auto) 42.2 H (16.0-40.0) % [place] % (Auto) 7.0 (0.0-15.0) % Eos % (Auto) 2.1 (0.0-7.0) % Baso % (Auto) 0.1 (0.0-1.5) % Neut # (Auto) 5.0 (1.4-5.7) K/uL Lymph # (Auto) 4.3 H (0.6-2.4) K/uL [place] # (Auto) 0.7 (0.0-0.8) K/uL Eos # (Auto) 0.2 (0.0-0.7) K/uL Baso # (Auto) 0.0 (0.0-0.1) K/uL Nucleated RBC % 0.0 /100WBC Nucleated RBCs # 0 K/uL Sodium 142 (136-148) mmol/L Potassium 3.8 (3.5-5.1) mmol/L Chloride 105 (98-107) mmol/L Carbon Dioxide 25.2 (21.0-32.0) mmol/L BUN 20 H (7.0-18.0) mg/dL Creatinine 0.9 (0.8-1.3) mg/dL Est Cr Clr Drug Dosing 88.67 mL/min Estimated GFR (MDRD) > 60.0 ml/min Glucose 156 H (74-106) mg/dL Calcium 9.2 (8.5-10.1) mg/dL Total Bilirubin 0.2 (0.2-1.0) mg/dL AST 10 L (15-37) IU/L ALT 29 (14-63) IU/L Alkaline Phosphatase 76 (46-116) U/L Total Protein 7.4 (6.4-8.2) g/dL Albumin 4.0 (3.4-5.0) g/dL Globulin 3.4 (2.6-4.0) g/dL Albumin/Globulin Ratio 1.2 (0.9-1.6) Lipase 126 (73-393) U/L Urine Color YELLOW Urine Appearance CLEAR Urine pH 6.0 (5.0-8.0) Ur Specific [place] 1.020 (1.001-1.035) Urine Protein NEGATIVE (NEGATIVE) mg/dL Urine Glucose (UA) NEGATIVE (NEGATIVE) mg/dL Urine Ketones NEGATIVE (NEGATIVE) mg/dL Urine Occult Blood NEGATIVE (NEGATIVE) Urine Nitrite NEGATIVE (NEGATIVE) Urine Bilirubin NEGATIVE (NEGATIVE) Urine Urobilinogen 1.0 (<2.0) EU/dL Ur Leukocyte Esterase NEGATIVE (NEGATIVE) Meds: Medications Discontinued Medications Generic Name Dose Route Start Last Admin Trade Name Freq PRN Reason Stop Dose Admin Acetaminophen/Codeine Phosphate 1 tab 11/01/20 20:14 Tylenol With Codeine No.3 300mg/30mg PO 11/01/20 20:15 ONETIME ONE Departure - Departure Time of Disposition: 20:17 Disposition: Home, Self-Care 01 Clinical Impression: Flank pain - Discharge Information Prescriptions: Acetaminophen/Codeine [Tylenol with Codeine No.3 300MG/30MG] 1 tab PO Q4H PRN #10 tab PRN Reason: Pain Instructions: Flank Pain, Adult, [id number] Referrals: Margarito Kraft MD [Primary Care Provider] - Forms: ED Department Discharge Additional Instructions: The following information is given to patients seen in the emergency department who are being discharged to home. This information is to outline your options for follow-up care. We provide all patients seen in our emergency department with a follow-up referral. The need for follow-up, as well as the timing and circumstances, are variable depending upon the specifics of your emergency department visit. If you don't have a primary care physician on staff, we will provide you with a referral. We always advise you to contact your personal physician following an e mergency department visit to inform them of the circumstance of the visit and for follow-up with them and/or the need for any referrals to a consulting specialist. The emergency department will also refer you to a specialist when appropriate. This referral assures that you have the opportunity for follow-up care with a specialist. All of these measure are taken in an effort to provide you with op timal care, which includes your follow-up. Under all circumstances we always encourage you to contact your private physician who remains a resource for coordinating your care. When calling for follow-up care, please make the office aware that this follow-up is from your recent emergency room visit. If for any reason you are refused follow-up, please contact the [facility] Emergency Department at and asked to speak to the emergency department charge nurse. [facility] [address] [place] [id number] [place] [id number] Thank you for choosing the [facility] emergency department in [place] for your medical needs today. It was a pleasure caring for you. Today you were seen in the emergency department for left sided abdominal/flank pain. 1. Today your lab work and CT scan are within normal limits. As we discussed, I believe your pain could be the start of a shingles out-break. If you develop a blister-like rash, I would like you to be seen by your primary care provider so you can get the medications we discussed. 2. Continue taking your home medications as directed. You can alternate Tylenol and ibuprofen as needed for pain management. Tylenol #3 as needed for moderate to sever pain. This medication may cause drowsiness, so do not drive while taking it. 3. We encourage you to follow up with your primary care provider and/or recommended specialist in the next few days for re-evaluation and further care/management. If your symptoms should worsen, new symptoms develop or any of the signs and symptoms we discussed should arise please return to the emergency room or call 911 (if needed). Sepsis Event Note (ED) - Evaluation Sepsis Screening Result: No Definite Risk - Focused Exam Vital Signs: Vital Signs Temp Pulse Resp BP Pulse Ox 11/01/20 19:11 77 16 128/75 96 11/01/20 17:46 96.7 F L 79 18 129/78 95
[2020-11-01 18:38] LABS: BLOOD UREA NITROGEN,BUN 20 mg/dL (7.0-18.0); CARBON DIOXIDE,CO2 25.2 mmol/L (21.0-32.0); CHLORIDE,CL 105 mmol/L (98-107); GLUCOSE RANDOM 156 mg/dL (74-106); LIPASE 126 U/L (73-393); POTASSIUM,K 3.8 mmol/L (3.5-5.1); SODIUM,NA 142 mmol/L (136-148)
[2020-11-01 19:13] VITALS: PULSE 77
--- NOTE | 2020-11-01 19:55 | CT ---
INDICATION: Left-sided abdominal pain for 1 day. TECHNIQUE: CT of the abdomen and pelvis without intravenous contrast. Coronal and sagittal reconstructions. COMPARISON: None. FINDINGS: The unenhanced liver, gallbladder, spleen, pancreas, and adrenal glands are normal in appearance. No hydronephrosis or ureteral dilation. No obstructing urinary calculi. The unenhanced bladder is normal in appearance. Mildly enlarged prostate. Small fat containing right inguinal hernia. No bowel dilation. Mild amount of stool throughout the colon. The appendix is mildly prominent in size measuring 8 mm in diameter, however is otherwise normal in appearance containing gas without wall thickening or surrounding inflammation. No intraperitoneal free air or fluid. Aortoiliac vascular calcifications. No lymphadenopathy. Degenerative changes of the spine. The lung bases are clear. Mild coronary artery calcifications. IMPRESSION: No acute findings in the abdomen or pelvis on this noncontrast exam. Please note that all CT scans at this facility use dose modulation, iterative reconstruction, and/or weight-based dosing when appropriate to reduce radiation dose to as low as reasonably achievable. Dictated by Delia Whipple MD @ Nov 01 2020 7:46PM Signed by Dr. Delia Whipple @ Nov 01 2020 7:54PM
[2020-11-01] MEDS ORDERED: Acetaminophen/Codeine 300-30 MG Tab PO ONE (20:14)
[2020-11-01 20:44] VITALS: BP 127/69
== END 2020-11-01 20:45 | disposition home or self-care (01) ==
LOC: MW.ED 17:31
DX: R10.9 Unspecified abdominal pain (principal); Z88.5 Allergy status to narcotic agent; Z86.73 Personal history of transient ischemic attack (TIA), and cerebral infarction without residual deficits; Z79.899 Other long term (current) drug therapy
CPT/HCPCS: 36415; 74176; 80053; 81003; 82962; 83690; 85025; 99284; A9270

== ENCOUNTER 2022-07-01 13:51 | Emergency (ER) | payer SELFPAY ==
[2022-07-01] MEDS ORDERED: Sodium Chloride 0.9% 10 ML Syringe FLUSH PRN (14:42)
[2022-07-01] MEDS ORDERED: Sodium Chloride 0.9% 2.5 ML Syringe FLUSH PRN (14:42)
[2022-07-01] MEDS ORDERED: Ondansetron 4 MG/2 ML SDV IVPUSH ONE (14:44)
[2022-07-01] MEDS ORDERED: Morphine 4 MG/ML VIAL IVPUSH ONE (14:44)
[2022-07-01 15:30] LABS: CARBON DIOXIDE,CO2 23.7 mmol/L (21.0-32.0); POTASSIUM,K 3.9 mmol/L (3.5-5.1)
[2022-07-01] MEDS ORDERED: Sodium Chloride 0.9% 1,000 ML IV STA (16:15)
[2022-07-01] MEDS ORDERED: Ketorolac 30 MG/ML SDV IVPUSH ONE (16:15)
[2022-07-01] MEDS ORDERED: HYDROmorphone 1 MG/ML Syringe IVPUSH ONE (17:24)
[2022-07-01 19:08] VITALS: BP 134/70; PULSE 74
== END 2022-07-01 19:07 | disposition home or self-care (01) ==
LOC: MW.ED 13:51
DX: M25.552 Pain in left hip (principal); I10 Essential (primary) hypertension; E11.9 Type 2 diabetes mellitus without complications; Z88.5 Allergy status to narcotic agent; Z79.899 Other long term (current) drug therapy; Z79.84 Long term (current) use of oral hypoglycemic drugs
CPT/HCPCS: 36415; 74176; 80053; 81001; 85025; 96361; 96374; 96375; 99284; J1170; J1885; J2270; J2405; J3490; J7030

== ENCOUNTER 2023-11-02 16:53 | Emergency (ER) | payer SELFPAY ==
[2023-11-02] MEDS ORDERED: Ketorolac 60 MG/2 ML SDV IM ONE (17:45)
[2023-11-02] MEDS ORDERED: Orphenadrine 60 MG/2 ML Inj IM ONE (17:45)
[2023-11-02] MEDS ORDERED: methylPREDNISolone Sodium Succinate 125 MG/2 ML SDV IM ONE (17:45)
[2023-11-02] MEDS ORDERED: traMADol 50 MG Tab PO ONE (19:02)
[2023-11-02] MEDS ORDERED: Lidocaine 4% 1 each Patch TOP SCH (19:15)
[2023-11-02 20:16] VITALS: BP 118/70; PULSE 72
== END 2023-11-02 19:50 | disposition home or self-care (01) ==
LOC: MW.ED 16:53
DX: M54.41 Lumbago with sciatica, right side (principal); I10 Essential (primary) hypertension; E11.9 Type 2 diabetes mellitus without complications; Z86.73 Personal history of transient ischemic attack (TIA), and cerebral infarction without residual deficits; Z79.84 Long term (current) use of oral hypoglycemic drugs; Z79.899 Other long term (current) drug therapy; Z88.5 Allergy status to narcotic agent
CPT/HCPCS: 72131; 96372; 99283; A9270; J1885; J2360; J2930